=== PATIENT | female | born 1940 | race Caucasian/White ===

== ENCOUNTER 2020-03-06 06:15 | Outpatient (CLI) | payer MEDICARE, OTHER ==
[2020-03-06 11:26] LABS: Hemoglobin 15.9 g/dL (12.0-16.0); Mean Corpuscular HGB CONC 34.3 g/dL (32.0-36.0); Mean Corpuscular Hemoglobin 30.8 pg (27.0-31.0); Mean Corpuscular Volume 89.8 fL (78.0-98.0); Mean Platelet Volume 9.4 fL (7.4-10.4); Platelet Count 210 thou/uL (130-400); Red Blood Cell (RBC) Count 5.16 mill/uL (4.20-5.40)
[2020-03-06 11:43] LABS: Bilirubin Negative (Negative); Blood, Urine Trace (Negative); Glucose, Urine (Dipstick) Negative (Negative); Leukocyte Moderate (Negative); Nitrite Positive (Negative); Protein, Urine (Dipstick) Negative (Neg-Trace); Urobilinogen 0.2 mg/dL (Less than 2)
[2020-03-06 11:44] LABS: Clarity Hazy (Clear)
[2020-03-06 11:53] LABS: RBC/HPF 0-3 HPF (0-3); WBC/HPF Greater Than 50 HPF (0-3)
[2020-03-06 11:54] LABS: Bacteria/HPF 3+ HPF (None Seen); Squamous Epithelial 0-3 HPF (0-3)
[2020-03-06 12:39] LABS: Anion Gap 14 mmol/L (10-20); BUN (Urea Nitrogen) 19 mg/dL (9.8-20.1); Calc. Creatinine Clearance 0 mL/min (70-130); Calcium 10.4 mg/dL (7.8-10.44); Carbon Dioxide 24 mmol/L (23-31); Chloride 108 mmol/L (98-107); Estimated GFR-MDRD 58; Glucose 78 mg/dL (83-110); Potassium 4.2 mmol/L (3.5-5.1); Sodium 142 mmol/L (136-145)
[2020-03-07 13:14] LABS: SARS-CoV-2 MS2 Positive; SARS-CoV-2 N Gene Negative; SARS-CoV-2 S Gene Negative; SARS-CoV-2 orf1ab Negative
== END 2020-03-06 06:16 | disposition home or self-care (01) ==
LOC: LABBT 06:15
PROVIDERS: ATTEND Urology
DX: Z01.818 Encounter for other preprocedural examination (principal); Z11.59 Encounter for screening for other viral diseases; R33.9 Retention of urine, unspecified
CPT/HCPCS: 80048; 81001; 85027; 87077; 87086; 87186; 93005; U0003; 87635; 93010

== ENCOUNTER 2020-03-10 07:32 | Day surgery (SDC) | payer MEDICARE ==
[2020-03-04 10:49] VITALS: BMI 25.6
[2020-03-10] MEDS ORDERED: Iopamidol 15 ML ONE (08:21)
[2020-03-10] MEDS ORDERED: Levofloxacin 500 mg/D5W 100 ml Premix Bag ONE (08:22)
[2020-03-10] MEDS ORDERED: Famotidine/PF 20 mg/2ml Vial ONE (09:20)
[2020-03-10] MEDS ORDERED: Fentanyl 100 MCG/2 ML VIAL ONE (09:20)
[2020-03-10] MEDS ORDERED: Famotidine 20 MG TAB ONE (09:20)
--- NOTE | 2020-03-10 10:12 | RAD ---
EXAM: XR IVP Retrograde DATE: 03/10/2020 12:00 AM INDICATION: Suprapubic tube COMPARISON: None. FINDING: Submitted image demonstrates a cystoscope in place. There is contrast within the bladder. T here is a tubing seen within the right aspect of the abdomen likely related to ventriculoperitoneal shunt catheter. There is levoscoliosis of lumbar spine. Bowel gas pattern is unobstructed. IMPRESSION:Single image from an IVP retrograde evaluation as above. Transcribed Date/Time: 03/10/2020 10:31 AM
[2020-03-10] MEDS ORDERED: Phenazopyridine HCl 97.5 MG TABLET ONE (10:20)
[2020-03-10] MEDS ORDERED: Oxybutynin 5 MG TAB ONE (10:20)
--- NOTE | 2020-03-10 13:06 | OP ---
DATE OF PROCEDURE: 03/10/2020 PREOPERATIVE DIAGNOSIS: Neurogenic bladder. POSTOPERATIVE DIAGNOSIS: Neurogenic bladder. PROCEDURES PERFORMED: Cystogram, suprapubic tube placement. ANESTHESIA: TIVA. COMPLICATIONS: None. ESTIMATED BLOOD LOSS: 10 mL. DESCRIPTION OF PROCEDURE: After informed consent, the patient was taken to the operating room, transferred to the table on her own power. Anesthesia was established. A time-out was performed, showing the correct patient, site, and procedure. Preoperative antibiotics were administered. She was prepped and draped in the lithotomy position. I began by inserting the rigid cystoscope through the urethra into the bladder. The bladder was systematically examined noting significant capacity with flaccid appearance of the bladder. No significant trabeculation. Contrast was instilled in the bladder allowing a cystogram. An image was taken at maximum volume of the bladder, which I estimate around 800 to 900 mL. No large diverticula. I spot 2 fingerbreadths above the pubic symphysis were then selected and a small incision was made with an 11 blade. The Lowsley retractor was then passed through the urethra and tented up against the anterior wall of the bladder. An 11 blade was then used to incise down upon the tip of the Lowsley, which was delivered into the operative field. An 18-[place] catheter was grasped with the Lowsley retractor and brought down to the bladder. An 8 mL were instilled in the balloon. The Lowsley was then removed and the cystoscope replaced, confirming proper placement of the suprapubic tube. The incision was closed around the catheter with chromic suture and then the catheter sutured in place with a 2-0 silk suture. The wound was dressed with gauze and tape. At this point, the procedure was completed. She was awoken from anesthesia, transferred back to her hospital bed, and taken to PACU in stable condition, where she was discharged home upon recovery. Job ID: [id number]
[2020-03-10] MEDS ORDERED: PROPOFOL 200 MG/20 ML VIAL ONE (14:46)
[2020-03-10] MEDS ORDERED: Lidocaine 1% PF 5 ML VIAL ONE (14:46)
== END 2020-03-10 11:45 | disposition home or self-care (01) ==
LOC: SDC 07:32
PROVIDERS: ATTEND Urology
PROC: 0T9B30Z Drainage of Bladder with Drainage Device, Percutaneous Approach (ICD-10-PCS; principal; 2020-03-10)
PROC: BT00ZZZ Plain Radiography of Bladder (ICD-10-PCS; 2020-03-10)
DX: N31.9 Neuromuscular dysfunction of bladder, unspecified (principal); G91.2 (Idiopathic) normal pressure hydrocephalus; I10 Essential (primary) hypertension; F31.9 Bipolar disorder, unspecified; M41.86 Other forms of scoliosis, lumbar region; Z79.899 Other long term (current) drug therapy; Z88.5 Allergy status to narcotic agent; Z88.8 Allergy status to other drugs, medicaments and biological substances; Z98.2 Presence of cerebrospinal fluid drainage device
CPT/HCPCS: 74420; J0690; J1956; J2001; J2704; J3010; Q9967; S0028

== ENCOUNTER 2022-06-15 13:42 | Outpatient (CLI) | payer MEDICARE, OTHER | END 2022-06-15 13:43 | disposition home or self-care (01) | LOC: BICULT 13:42 | PROVIDERS: ATTEND Urology | DX: N31.9 Neuromuscular dysfunction of bladder, unspecified (principal); R33.9 Retention of urine, unspecified; N28.1 Cyst of kidney, acquired; Z96.0 Presence of urogenital implants | CPT/HCPCS: 76770 ==

== ENCOUNTER 2022-09-01 12:27 | Outpatient (CLI) | payer MEDICARE, OTHER | END 2022-09-01 12:28 | disposition home or self-care (01) | LOC: RAD 12:27 | PROVIDERS: ATTEND Physician Assistant Medical | DX: G91.2 (Idiopathic) normal pressure hydrocephalus (principal); G93.89 Other specified disorders of brain; Z98.2 Presence of cerebrospinal fluid drainage device | CPT/HCPCS: 70450; 75809 ==

== ENCOUNTER 2023-01-18 20:46 | Emergency (ER) | payer MEDICARE, OTHER | END 2023-01-18 22:14 | disposition home or self-care (01) | LOC: ERS 20:46 | DX: Z46.6 Encounter for fitting and adjustment of urinary device (principal) | CPT/HCPCS: 51705 ==

== ENCOUNTER 2023-06-15 17:24 | Inpatient (IN) | payer OTHER, MEDICARE ==
[2023-06-15] MEDS ORDERED: hydrALAZINE 20 MG/ML VIAL ONE (17:39)
[2023-06-15] MEDS ORDERED: Ondansetron PF 4 MG/2 ML Vial ONE ×2 (17:39→17:59)
[2023-06-15] MEDS ORDERED: Acetaminophen 500 MG TAB ONE (17:43)
[2023-06-15 18:00] LABS: #Eosinphils 0.1 thou/uL (0.0-0.7); #Monocytes 0.6 thou/uL (0.11-0.59); #Neutrophils 5.1 thou/uL (1.40-6.50); %Basophils 0.4 % (0.0-1.0); %Eosinophils 1.4 % (0.0-10.0); %Lymphocytes 19.3 % (21.0-51.0); %Monocytes 8.2 % (0.0-10.0); %Neutrophils 70.6 % (42.0-75.0); Hemoglobin 12.7 g/dL (12.0-16.0); Mean Corpuscular HGB CONC 33.4 g/dL (32.0-36.0); Mean Corpuscular Volume 89.8 fl (78.0-98.0); Mean Platelet Volume 10.7 fL (7.4-10.4); Platelet Count 185 10x3/uL (130-400); Red Blood Cell (RBC) Count 4.23 mill/uL (4.20-5.40); White Blood Cell (WBC) Count 7.3 10x3/uL (4.8-10.8)
[2023-06-15] MEDS ORDERED: Promethazine HCl 25 MG/ML VIAL ONE (18:00)
[2023-06-15 18:27] LABS: Troponin I Less than 0.010 ng/mL (< 0.028)
[2023-06-15 18:29] LABS: ALT (SGPT) 14 U/L (8-55); AST (SGOT) 20 U/L (5-34); Albumin 3.8 g/dL (3.4-4.8); Alkaline Phosphatase 115 U/L (40-110); Anion Gap 15 mmol/L (10-20); BUN (Urea Nitrogen) 9 mg/dL (9.8-20.1); Bilirubin, Total 0.5 mg/dL (0.2-1.2); Calc. Creatinine Clearance 0 mL/min (70-130); Calcium 9.1 mg/dL (7.8-10.44); Carbon Dioxide 26 mmol/L (23-31); Chloride 100 mmol/L (98-107); Estimated GFR 76; Globulin 2.4 g/dL (2.4-3.5); Glucose 106 mg/dL (83-110); Potassium 3.1 mmol/L (3.5-5.1); Protein, Total 6.2 g/dL (5.8-8.1); Sodium 138 mmol/L (136-145)
[2023-06-15 18:53] LABS: Phosphorus 3.1 mg/dL (2.3-4.7)
[2023-06-15 18:54] LABS: Magnesium 1.8 mg/dL (1.6-2.6)
[2023-06-15] MEDS ORDERED: Ondansetron ODT 4 MG TAB PO PRN (19:15)
[2023-06-15] MEDS ORDERED: Ondansetron PF 4 MG/2 ML Vial IVP PRN (19:15)
[2023-06-15] MEDS ORDERED: Acetaminophen 325 MG TAB PO PRN (19:15)
[2023-06-15] MEDS ORDERED: hydrALAZINE 20 MG/ML VIAL SLOW IVP PRN (19:20)
[2023-06-15] MEDS ORDERED: Potassium Chloride 20 MEQ TAB PO SCH (20:00)
[2023-06-16 04:17] LABS: #Eosinphils 0.1 thou/uL (0.0-0.7); #Monocytes 0.7 thou/uL (0.11-0.59); #Neutrophils 4.3 thou/uL (1.40-6.50); %Basophils 0.4 % (0.0-1.0); %Eosinophils 1.2 % (0.0-10.0); %Monocytes 10.1 % (0.0-10.0); %Neutrophils 63.2 % (42.0-75.0); Hematocrit 32.9 % (36.0-47.0); Hemoglobin 11.2 g/dL (12.0-16.0); Mean Corpuscular Hemoglobin 30.5 pg (27.0-31.0); Mean Corpuscular Volume 89.6 fl (78.0-98.0); Mean Platelet Volume 10.5 fL (7.4-10.4); Platelet Count 179 10x3/uL (130-400); Red Blood Cell (RBC) Count 3.67 mill/uL (4.20-5.40); White Blood Cell (WBC) Count 6.8 10x3/uL (4.8-10.8)
[2023-06-16 04:42] LABS: Anion Gap 10 mmol/L (10-20); BUN (Urea Nitrogen) 8 mg/dL (9.8-20.1); Calc. Creatinine Clearance 0 mL/min (70-130); Calcium 9.7 mg/dL (7.8-10.44); Carbon Dioxide 30 mmol/L (23-31); Chloride 104 mmol/L (98-107); Estimated GFR 79; Glucose 79 mg/dL (83-110); Potassium 3.3 mmol/L (3.5-5.1); Sodium 141 mmol/L (136-145)
[2023-06-16 06:11] VITALS: BMI 18.6
[2023-06-16] MEDS ORDERED: Potassium Chloride 20 MEQ TAB PO SCH (08:00)
[2023-06-16] MEDS: NIFEdipine XL 30 MG ER.TAB PO SCH (08:52)
[2023-06-16] MEDS ORDERED: Magnesium Oxide 400 MG TAB PO SCH (09:00)
[2023-06-16] MEDS ORDERED: FLU VACC QS2023(65UP)/MF59C/PF 60 MCG/0.5 ML SYRINGE IM ONE (12:00)
[2023-06-16] MEDS ORDERED: Lisinopril 20 MG TAB PO SCH (13:45)
[2023-06-16] MEDS ORDERED: hydrOXYzine 25 MG TAB PO PRN (14:13)
[2023-06-16] MEDS ORDERED: clonazePAM 0.5 MG TAB PO SCH (14:30)
[2023-06-16] MEDS: Pregabalin 75 MG CAP PO SCH (20:05)
[2023-06-16] MEDS ORDERED: CLONAZEPAM 0.125 MG PO SCH (21:00)
[2023-06-17 05:15] LABS: #Basophils 0.1 thou/uL (0.0-0.2); #Eosinphils 0.2 thou/uL (0.0-0.7); #Monocytes 0.6 thou/uL (0.11-0.59); #Neutrophils 2.9 thou/uL (1.40-6.50); %Basophils 0.9 % (0.0-1.0); %Eosinophils 2.9 % (0.0-10.0); %Lymphocytes 32.3 % (21.0-51.0); %Monocytes 11.4 % (0.0-10.0); %Neutrophils 52.3 % (42.0-75.0); Hematocrit 38.9 % (36.0-47.0); Hemoglobin 12.8 g/dL (12.0-16.0); Mean Corpuscular HGB CONC 32.9 g/dL (32.0-36.0); Mean Corpuscular Hemoglobin 30.2 pg (27.0-31.0); Mean Corpuscular Volume 91.7 fl (78.0-98.0); Mean Platelet Volume 11.2 fL (7.4-10.4); Platelet Count 187 10x3/uL (130-400); RBC Distribution Width 13.2 % (11.5-14.5); Red Blood Cell (RBC) Count 4.24 mill/uL (4.20-5.40); White Blood Cell (WBC) Count 5.6 10x3/uL (4.8-10.8)
[2023-06-17 05:58] LABS: Anion Gap 11 mmol/L (10-20); BUN (Urea Nitrogen) 10 mg/dL (9.8-20.1); Calc. Creatinine Clearance 37 mL/min (70-130); Calcium 10.3 mg/dL (7.8-10.44); Carbon Dioxide 30 mmol/L (23-31); Chloride 105 mmol/L (98-107); Estimated GFR 67; Glucose 75 mg/dL (83-110); Potassium 3.8 mmol/L (3.5-5.1); Sodium 142 mmol/L (136-145)
[2023-06-17] MEDS: Lisinopril 20 MG TAB PO SCH (10:00)
[2023-06-17] MEDS: DULoxetine 60 MG CAP PO SCH (10:00)
[2023-06-17] MEDS: Oxybutynin 5 MG TAB PO SCH (10:00)
[2023-06-17] MEDS: NIFEdipine XL 30 MG ER.TAB PO SCH (10:00)
[2023-06-17] MEDS ORDERED: clonazePAM 0.5 MG TAB PO PRN (12:07)
[2023-06-17] MEDS: Pregabalin 75 MG CAP PO SCH (20:41)
[2023-06-17] MEDS: Melatonin 3 MG TAB PO SCH (20:41)
[2023-06-17] MEDS: Atorvastatin Calcium 10 MG TAB PO SCH (20:41)
[2023-06-18 05:36] LABS: #Eosinphils 0.2 thou/uL (0.0-0.7); #Monocytes 0.8 thou/uL (0.11-0.59); #Neutrophils 4.2 thou/uL (1.40-6.50); %Basophils 0.6 % (0.0-1.0); %Lymphocytes 24.6 % (21.0-51.0); %Monocytes 10.7 % (0.0-10.0); %Neutrophils 60.8 % (42.0-75.0); Hematocrit 39.8 % (36.0-47.0); Hemoglobin 13.3 g/dL (12.0-16.0); Mean Corpuscular HGB CONC 33.4 g/dL (32.0-36.0); Mean Corpuscular Hemoglobin 30.3 pg (27.0-31.0); Mean Corpuscular Volume 90.7 fl (78.0-98.0); Mean Platelet Volume 10.4 fL (7.4-10.4); Platelet Count 216 10x3/uL (130-400); RBC Distribution Width 13.2 % (11.5-14.5); Red Blood Cell (RBC) Count 4.39 mill/uL (4.20-5.40)
[2023-06-18 05:59] LABS: Anion Gap 12 mmol/L (10-20); BUN (Urea Nitrogen) 15 mg/dL (9.8-20.1); Calc. Creatinine Clearance 38 mL/min (70-130); Calcium 10.3 mg/dL (7.8-10.44); Carbon Dioxide 28 mmol/L (23-31); Chloride 103 mmol/L (98-107); Estimated GFR 70; Glucose 89 mg/dL (83-110); Sodium 139 mmol/L (136-145)
[2023-06-18] MEDS ORDERED: Linaclotide [Linzess] 290 MCG Capsule PO SCH (07:30)
[2023-06-18] MEDS: NIFEdipine XL 30 MG ER.TAB PO SCH (08:50)
[2023-06-18] MEDS: Lisinopril 20 MG TAB PO SCH (08:50)
[2023-06-18] MEDS: DULoxetine 60 MG CAP PO SCH (08:50)
[2023-06-18] MEDS: Oxybutynin 5 MG TAB PO SCH (08:50)
[2023-06-18] MEDS ORDERED: Polyethylene Glycol 3350 17 GM Packet PO PRN (10:50)
[2023-06-18] MEDS: Atorvastatin Calcium 10 MG TAB PO SCH (20:52)
[2023-06-18] MEDS: Pregabalin 75 MG CAP PO SCH (20:52)
[2023-06-18] MEDS: Melatonin 3 MG TAB PO SCH (20:52)
[2023-06-18] MEDS: Docusate 100 MG CAP PO PRN (21:22)
[2023-06-19] MEDS: Lisinopril 20 MG TAB PO SCH (09:36)
[2023-06-19] MEDS: NIFEdipine XL 30 MG ER.TAB PO SCH (09:36)
[2023-06-19] MEDS: Oxybutynin 5 MG TAB PO SCH (09:36)
[2023-06-19] MEDS: Docusate 100 MG CAP PO PRN (09:37)
[2023-06-19] MEDS: DULoxetine 60 MG CAP PO SCH (09:42)
[2023-06-19 11:57] VITALS: BP 130/58; TEMP 98.7
== END 2023-06-19 13:24 | DRG 305 ==
LOC: ERS 17:24 → 2SE 19:14 → OBSVTOIN 06-16 14:17
PROVIDERS: ADMIT Internal Medicine; ATTEND Internal Medicine
DX: I16.0 Hypertensive urgency (principal); I16.1 Hypertensive emergency; G24.01 Drug induced subacute dyskinesia; F03.90 Unspecified dementia, unspecified severity, without behavioral disturbance, psychotic disturbance, mood disturbance, and anxiety; E87.6 Hypokalemia; W19.XXXA Unspecified fall, initial encounter; E83.42 Hypomagnesemia; F31.9 Bipolar disorder, unspecified; Z88.5 Allergy status to narcotic agent; Z88.8 Allergy status to other drugs, medicaments and biological substances; Z79.899 Other long term (current) drug therapy; Z90.710 Acquired absence of both cervix and uterus; Z98.890 Other specified postprocedural states; Y92.89 Other specified places as the place of occurrence of the external cause
CPT/HCPCS: 36415; 70450; 80048; 80053; 83735; 83880; 84100; 84484; 85025; 93005; 96365; 96372; 96375; 96376; G0378; J0360; J1650; J2405; J2550

== ENCOUNTER 2023-07-02 12:18 | Emergency (ER) | payer MEDICARE ==
[2023-07-02 13:25] LABS: Bacteria/HPF 3+ HPF (None Seen); Bilirubin Negative (Negative); CAUTI Indications for Culture Alt mental st,lethar; Calcium Oxalate Crystals 1+ HPF (None Seen); Clarity Turbid (Clear); Glucose, Urine (Dipstick) Normal (Negative); Ketone, Urine Trace mg/dL (Negative); Leukocyte 500 Leu/uL (Negative); Nitrite 2+ (Negative); Protein, Urine (Dipstick) 10 mg/dL (Neg-Trace); RBC/HPF 21-50 HPF (0-3); Specific Gravity, Urine 1.013 (1.002-1.036); Squamous Epithelial 0-3 HPF (0-3); Urobilinogen Normal mg/dL (Less than 2); WBC/HPF 21-50 HPF (0-3); pH, Urine 7.5 (5.0-9.0)
[2023-07-02 13:33] LABS: Blood, Urine Small (Negative)
[2023-07-02 13:34] LABS: Urine Culture Reflex Yes Yes
[2023-07-02 13:37] LABS: #Eosinphils 0.1 thou/uL (0.0-0.7); #Monocytes 0.7 thou/uL (0.11-0.59); #Neutrophils 5.1 thou/uL (1.40-6.50); %Basophils 0.5 % (0.0-1.0); %Eosinophils 1.6 % (0.0-10.0); %Lymphocytes 28.6 % (21.0-51.0); %Monocytes 7.9 % (0.0-10.0); %Neutrophils 61.3 % (42.0-75.0); Hematocrit 46.8 % (36.0-47.0); Hemoglobin 15.3 g/dL (12.0-16.0); Mean Corpuscular HGB CONC 32.7 g/dL (32.0-36.0); Mean Corpuscular Hemoglobin 30.1 pg (27.0-31.0); Mean Corpuscular Volume 91.9 fl (78.0-98.0); Mean Platelet Volume 10.6 fL (7.4-10.4); Platelet Count 193 10x3/uL (130-400); RBC Distribution Width 13.2 % (11.5-14.5); Red Blood Cell (RBC) Count 5.09 mill/uL (4.20-5.40); White Blood Cell (WBC) Count 8.2 10x3/uL (4.8-10.8)
[2023-07-02 14:03] LABS: ALT (SGPT) 21 U/L (8-55); AST (SGOT) 25 U/L (5-34); Albumin 4.9 g/dL (3.4-4.8); Alkaline Phosphatase 112 U/L (40-110); Anion Gap 18 mmol/L (10-20); BUN (Urea Nitrogen) 14 mg/dL (9.8-20.1); Bilirubin, Total 0.7 mg/dL (0.2-1.2); CK (CPK) 41 U/L (29-168); Calc. Creatinine Clearance 0 mL/min (70-130); Calcium 10.8 mg/dL (7.8-10.44); Carbon Dioxide 20 mmol/L (23-31); Chloride 110 mmol/L (98-107); Estimated GFR 66; Globulin 2.3 g/dL (2.4-3.5); Glucose 72 mg/dL (83-110); Magnesium 2.2 mg/dL (1.6-2.6); Potassium 4.3 mmol/L (3.5-5.1); Protein, Total 7.2 g/dL (5.8-8.1); Sodium 144 mmol/L (136-145)
[2023-07-02 14:04] LABS: Troponin I Less than 0.010 ng/mL (< 0.028)
[2023-07-02] MEDS ORDERED: cefTRIAXone (ROCEPHIN) 2 GM VIAL ONE (16:03)
[2023-07-02] MEDS ORDERED: Sodium Chloride 0.9% 100 ML ONE (16:04)
== END 2023-07-02 17:56 ==
LOC: ERS 12:18
DX: N39.0 Urinary tract infection, site not specified (principal); I10 Essential (primary) hypertension
CPT/HCPCS: 36415; 70450; 71045; 72125; 80053; 81001; 82550; 83735; 84484; 85025; 87077; 87086; 87186; J0696; J3490

== ENCOUNTER 2023-08-19 14:07 | Emergency (ER) | payer MEDICARE | END 2023-08-19 15:34 | disposition home or self-care (01) | LOC: ERS 14:07 | DX: K64.4 Residual hemorrhoidal skin tags (principal); I10 Essential (primary) hypertension; Z79.899 Other long term (current) drug therapy | CPT/HCPCS: 99283 ==

== ENCOUNTER 2023-10-24 13:33 | Outpatient (CLI) | payer MEDICARE | END 2023-10-24 13:34 | disposition home or self-care (01) | LOC: BICULT 13:33 | PROVIDERS: ATTEND Urology | DX: Z43.5 Encounter for attention to cystostomy (principal); N31.9 Neuromuscular dysfunction of bladder, unspecified; N28.1 Cyst of kidney, acquired; R33.9 Retention of urine, unspecified | CPT/HCPCS: 76770 ==

== ENCOUNTER 2023-12-05 06:23 | Inpatient (IN) | payer MEDICARE, OTHER ==
[2023-12-05] MEDS ORDERED: Boostrix 0.5 ML (Tdap) VIAL (>/=7 yrs of age) ONE (07:16)
[2023-12-05 07:22] LABS: #Basophils 0.04 10x3/uL (0.0-0.2); %Basophils 0.3 % (0.0-1.0); %Eosinophils 0.7 % (0.0-10.0); %Lymphocytes 13.1 % (21.0-51.0); %Monocytes 5.2 % (0.0-10.0); %Neutrophils 80.3 % (42.0-75.0); Hematocrit 38.9 % (36.0-47.0); Hemoglobin 12.8 g/dL (12.0-16.0); Mean Corpuscular HGB CONC 32.9 g/dL (32.0-36.0); Mean Corpuscular Hemoglobin 30.3 pg (27.0-31.0); Mean Corpuscular Volume 92.2 fL (78.0-98.0); Mean Platelet Volume 10.4 fL (7.4-10.4); Platelet Count 185 10x3/uL (130-400); Red Blood Cell (RBC) Count 4.22 mill/uL (4.20-5.40)
[2023-12-05 07:41] LABS: Prothrombin Time 12.8 sec (12.0-14.7)
[2023-12-05 07:42] LABS: PTT 23.8 sec (22.9-36.1)
[2023-12-05 07:46] LABS: Troponin I 0.017 ng/mL (< 0.028)
[2023-12-05 08:13] LABS: ALT (SGPT) 17 U/L (8-55); AST (SGOT) 18 U/L (5-34); Albumin 3.9 g/dL (3.4-4.8); Alkaline Phosphatase 101 U/L (40-110); Anion Gap 16 mmol/L (10-20); BUN (Urea Nitrogen) 15 mg/dL (9.8-20.1); Bilirubin, Total 0.4 mg/dL (0.2-1.2); CK (CPK) 87 U/L (29-168); Calc. Creatinine Clearance 0 mL/min (70-130); Calcium 10.3 mg/dL (7.8-10.44); Carbon Dioxide 17 mmol/L (23-31); Chloride 114 mmol/L (98-107); Estimated GFR 76; Globulin 2.2 g/dL (2.4-3.5); Glucose 109 mg/dL (83-110); Magnesium 1.9 mg/dL (1.6-2.6); Potassium 3.8 mmol/L (3.5-5.1); Protein, Total 6.1 g/dL (5.8-8.1); Sodium 143 mmol/L (136-145)
[2023-12-05 08:53] LABS: Bilirubin Negative (Negative); Blood, Urine 1+ (Negative); CAUTI Indications for Culture Alt mental st,lethar; Clarity Clear (Clear); Glucose, Urine (Dipstick) Normal (Negative); Ketone, Urine Negative (Negative); Leukocyte Negative Leu/uL (Negative); Nitrite Negative (Negative); Protein, Urine (Dipstick) 50 mg/dL (Neg-Trace); Squamous Epithelial None Seen HPF (0-3); Urobilinogen Normal mg/dL (Less than 2); WBC/HPF 0-3 HPF (0-3)
[2023-12-05 08:55] LABS: Bacteria/HPF 1+ HPF (None Seen); Urine Culture Reflex No No
[2023-12-05] MEDS ORDERED: CEFAZOLIN 2 GM in Sodium Chloride 0.9% 100 ML IVPB SCH (11:30)
[2023-12-05] MEDS ORDERED: Ondansetron PF 4 MG/2 ML Vial IVP PRN (11:37)
[2023-12-05] MEDS ORDERED: Ipratropium/Albuterol 3 ML NEB NEB PRN (11:37)
[2023-12-05 12:42] VITALS: BMI 18.3
[2023-12-05] MEDS ORDERED: Lidocaine 1% PF 5 ML VIAL ONE (13:30)
[2023-12-05] MEDS ORDERED: PROPOFOL 20 ML ONE (13:30)
[2023-12-05] MEDS ORDERED: Ondansetron PF 4 MG/2 ML Vial ONE (13:30)
[2023-12-05] MEDS ORDERED: fentaNYL 50 mcg/mL 1 mL Vial ONE (13:30)
[2023-12-05] MEDS ORDERED: Sodium Chloride 0.9% 100 ML ONE (13:45)
[2023-12-05] MEDS ORDERED: CEFAZOLIN 2 GM VIAL ONE (13:45)
[2023-12-05] MEDS ORDERED: Ondansetron HCl/PF 4 MG/2 ML Vial IVP PRN (14:10)
[2023-12-05] MEDS ORDERED: Promethazine HCl 25 MG/ML VIAL IM PRN (14:10)
[2023-12-05] MEDS ORDERED: Iopamidol-370 76% 500 ML MDV (1 ML CHARGE) ONE (14:20)
[2023-12-05] MEDS ORDERED: hydrALAZINE 20 MG/ML VIAL ONE (14:48)
[2023-12-05] MEDS: Morphine 2 MG/ML VIAL SLOW IVP PRN (16:11)
[2023-12-05] MEDS ORDERED: Oxybutynin 5 MG TAB PO PRN (20:19)
[2023-12-05] MEDS: Atorvastatin Calcium 10 MG TAB PO SCH (20:44)
[2023-12-05] MEDS: Memantine 10 MG TAB PO SCH (20:44)
[2023-12-05] MEDS: Famotidine/PF 20 mg/2ml Vial SLOW IVP SCH (20:44)
[2023-12-05] MEDS: Pregabalin 75 MG CAP PO SCH (20:44)
[2023-12-05] MEDS: clonazePAM 0.5 MG TAB PO SCH (20:45)
[2023-12-05] MEDS: Melatonin 3 MG TAB PO SCH (20:49)
[2023-12-05] MEDS: CEFAZOLIN 2 GM in Sodium Chloride 0.9% 100 ML IVPB SCH (20:49)
[2023-12-05] MEDS ORDERED: Megestrol Acetate 400 MG/10 ML UDCUP PO PRN (21:00)
[2023-12-06 04:21] LABS: Anion Gap 12 mmol/L (10-20); BUN (Urea Nitrogen) 13 mg/dL (9.8-20.1); Calc. Creatinine Clearance 43 mL/min (70-130); Calcium 9.5 mg/dL (7.8-10.44); Carbon Dioxide 19 mmol/L (23-31); Chloride 113 mmol/L (98-107); Estimated GFR 83; Glucose 122 mg/dL (83-110); Potassium 3.1 mmol/L (3.5-5.1); Sodium 141 mmol/L (136-145)
[2023-12-06 06:33] LABS: #Basophils Less than 0.03 10x3/uL (0.0-0.2); %Basophils 0.2 % (0.0-1.0); %Eosinophils 0.3 % (0.0-10.0); %Lymphocytes 14.4 % (21.0-51.0); %Monocytes 10.9 % (0.0-10.0); %Neutrophils 73.7 % (42.0-75.0); Hematocrit 26.7 % (36.0-47.0); Hemoglobin 9.3 g/dL (12.0-16.0); Mean Corpuscular HGB CONC 34.8 g/dL (32.0-36.0); Mean Corpuscular Hemoglobin 30.2 pg (27.0-31.0); Mean Corpuscular Volume 86.7 fL (78.0-98.0); Mean Platelet Volume 10.6 fL (7.4-10.4); Platelet Count 179 10x3/uL (130-400); RBC Distribution Width 13.3 % (11.5-14.5); Red Blood Cell (RBC) Count 3.08 mill/uL (4.20-5.40)
[2023-12-06] MEDS: NIFEdipine XL 30 MG ER.TAB PO SCH (09:35)
[2023-12-06] MEDS: DULoxetine 60 MG CAP PO SCH (09:35)
[2023-12-06] MEDS: Lisinopril 20 MG TAB PO SCH (09:36)
[2023-12-06] MEDS: Aspirin 81 mg Enteric Coated Tablet PO SCH (09:36)
[2023-12-06] MEDS: Potassium Chloride 20 MEQ TAB PO SCH (09:36)
[2023-12-06] MEDS: Famotidine 20 MG TAB PO SCH (09:37)
[2023-12-06] MEDS: Ketorolac Tromethamine 30 MG (1 mL) VIAL IVP SCH ×2 (12:17→13:33)
[2023-12-06] MEDS: Acetaminophen 500 MG TAB PO SCH (12:19)
[2023-12-07 08:06] LABS: Anion Gap 11 mmol/L (10-20); BUN (Urea Nitrogen) 16 mg/dL (9.8-20.1); Calc. Creatinine Clearance 42 mL/min (70-130); Calcium 9.7 mg/dL (7.8-10.44); Carbon Dioxide 17 mmol/L (23-31); Chloride 116 mmol/L (98-107); Estimated GFR 81; Glucose 100 mg/dL (83-110); Potassium 3.6 mmol/L (3.5-5.1); Sodium 140 mmol/L (136-145)
[2023-12-07 18:58] LABS: #Basophils Less than 0.03 10x3/uL (0.0-0.2); %Basophils 0.1 % (0.0-1.0); %Eosinophils 0.9 % (0.0-10.0); %Lymphocytes 14.5 % (21.0-51.0); %Monocytes 11.5 % (0.0-10.0); %Neutrophils 72.6 % (42.0-75.0); Hematocrit 26.1 % (36.0-47.0); Hemoglobin 8.7 g/dL (12.0-16.0); Mean Corpuscular HGB CONC 33.3 g/dL (32.0-36.0); Mean Corpuscular Hemoglobin 30.5 pg (27.0-31.0); Mean Corpuscular Volume 91.6 fL (78.0-98.0); Mean Platelet Volume 10.6 fL (7.4-10.4); Platelet Count 182 10x3/uL (130-400); RBC Distribution Width 13.4 % (11.5-14.5); Red Blood Cell (RBC) Count 2.85 mill/uL (4.20-5.40)
[2023-12-07] MEDS: Senokot S 8.6-50 MG TAB PO SCH (20:05)
[2023-12-08 05:31] LABS: Anion Gap 11 mmol/L (10-20); BUN (Urea Nitrogen) 28 mg/dL (9.8-20.1); Calc. Creatinine Clearance 38 mL/min (70-130); Calcium 9.9 mg/dL (7.8-10.44); Carbon Dioxide 20 mmol/L (23-31); Chloride 114 mmol/L (98-107); Estimated GFR 71; Glucose 110 mg/dL (83-110); Potassium 3.6 mmol/L (3.5-5.1); Sodium 141 mmol/L (136-145)
[2023-12-08] MEDS: Polyethylene Glycol 3350 17 GM Packet PO SCH (08:57)
[2023-12-08 16:35] VITALS: BP 125/63; TEMP 98.7
[2023-12-09] MEDS ORDERED: Famotidine 20 MG TAB PO SCH (09:00)
== END 2023-12-08 18:30 | DRG 481 ==
LOC: ERS 06:23 → SURG A 11:00
PROVIDERS: ADMIT Surgery; ATTEND Surgery
PROC: 0QS636Z Reposition Right Upper Femur with Intramedullary Internal Fixation Device, Percutaneous Approach (ICD-10-PCS; principal; 2023-12-05)
DX: S72.141A Displaced intertrochanteric fracture of right femur, initial encounter for closed fracture (principal); R64 Cachexia; Z68.1 Body mass index [BMI] 19.9 or less, adult; I10 Essential (primary) hypertension; F03.90 Unspecified dementia, unspecified severity, without behavioral disturbance, psychotic disturbance, mood disturbance, and anxiety; K59.00 Constipation, unspecified; F41.9 Anxiety disorder, unspecified; G62.9 Polyneuropathy, unspecified; F32.A Depression, unspecified; W19.XXXA Unspecified fall, initial encounter; Z90.710 Acquired absence of both cervix and uterus; Z79.899 Other long term (current) drug therapy
CPT/HCPCS: 36415; 70450; 71045; 71260; 72125; 72170; 74177; 80048; 80053; 81001; 82550; 83735; 83880; 84484; 85025; 85610; 85730; 86850; 86900; 86901; 90471; 90715; 93005; 94760; C1713; G0390; J0360; J1885; J2272; J2405; J2704; J3010; J3490; Q9967; S0028

== ENCOUNTER 2025-08-05 14:18 | Outpatient (CLI) | payer MEDICARE | END 2025-08-05 14:19 | disposition home or self-care (01) | LOC: ULT 14:18 | PROVIDERS: ATTEND Urology | DX: N28.1 Cyst of kidney, acquired (principal); K59.01 Slow transit constipation; R93.421 Abnormal radiologic findings on diagnostic imaging of right kidney | CPT/HCPCS: 76770 ==